=== PATIENT | male | born 1995 ===

== ENCOUNTER 2018-08-28 10:42 | Emergency (ER) | payer BC ==
[2018-08-28] MEDS ORDERED: methylPREDNISolone 125 MG* 2 ML VIAL ONE (10:45)
[2018-08-28] MEDS ORDERED: Famotidine IV* 10 MG/ML 2 ML (20 mg) ONE (10:45)
--- NOTE | 2018-08-28 10:54 | ED ---
Allergic Reaction/Systemic - HPI Summary HPI Summary: This patient is a 23 year old M brought in by ambulance to [facility] with a chief complaint of SOB and throat tightening since 10:30. 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 Patient gave himself 1 dose of epinephrine [employer] and notes that his symptoms have improved and he is no longer having SOB or throat tightening. The patient rates the pain 0/10 in severity. Symptoms aggravated by nothing. Symptoms alleviated by epi. Patient reports diffuse erythema, tremors, and dry mouth. - History of Current Complaint Time Seen by Provider: 08/28/18 10:42 Hx Obtained From: Patient Onset/Duration: Sudden Onset, Started minutes ago, Resolved Timing: Lasting Minutes Severity Initially: Moderate Severity Currently: Moderate Aggravating Factor(s): Nothing Alleviating Factor(s): Epinephrine Associated Signs And Symptoms: Positive: Difficulty Breathing, Rash - erythema of upper body. Negative: Throat Tightening - Allergies/Home Medications Allergies/Adverse Reactions: Allergies Allergy/AdvReac Type Severity Reaction Status Date / Time Penicillins Allergy Unknown Verified 08/28/18 11:16 Reaction Details Tree Nuts Allergy Anaphylatic Verified 08/28/18 11:16 Shock PMH/Surg Hx/FS Hx/Imm Hx Endocrine/Hematology History: Denies: Hx Diabetes Cardiovascular History: Denies: Hx Hypertension Opthamlomology History: Denies: Hx Legally Blind EENT History: Denies: Hx Deafness - Surgical History Surgery Procedure, Year, and Place: right wrist surgery - Family History Known Family History: Positive: Other - alzheimers (mother's side) - Social History Occupation: Student Alcohol Use: None Substance Use Type: Reports: None Hx Tobacco Use: No Review of Systems Positive: Fever ENT: Negative - negative throat tightening Negative: Shortness Of Breath Skin: Other - erythema of uppe rbody Neurological: Other - tremulous All Other Systems Reviewed And Are Negative: Yes Physical Exam - Summary Physical Exam Summary: VITAL SIGNS: Reviewed. GENERAL: Patient is a well-developed and nourished MALE who is lying comfortable in the stretcher. Patient is not in any acute respiratory distress. HEAD AND FACE: No signs of trauma. No ecchymosis, hematomas or skull depressions. No sinus tenderness. No trismus EYES: PERRLA, EOMI x 2, No injected conjunctiva, no nystagmus. EARS: Hearing grossly intact. Ear canals and tympanic membranes are within normal limits. MOUTH: Oropharynx within normal limits. Tongue and lips are not swollen NECK: Supple, trachea is midline, no adenopathy, no JVD, no carotid bruit, no c- spine tenderness, neck with full ROM. CHEST: Symmetric, no tenderness at palpation LUNGS: Clear to auscultation bilaterally. No wheezing or crackles. CVS: Tachycardia at 131 bpm. Regular rhythm, S1 and S2 present, no murmurs or gallops appreciated. ABDOMEN: Soft, non-tender. No signs of distention. No rebound no guarding, and no masses palpated. Bowel sounds are normal. EXTREMITIES: FROM in all major joints, no edema, no cyanosis or clubbing. NEURO: Alert and oriented x 3. No acute neurological deficits. Speech is normal and follows commands. Tremulous secondary to epinephrine administration SKIN: Dry and warm, diffuse erythema in upper body Triage Information Reviewed: Yes Vital Signs Reviewed: Yes Diagnostics - Laboratory Result Diagrams: 08/28/18 10:41 08/28/18 10:41 Lab Statement: Any lab studies that have been ordered have been reviewed, and results considered in the medical decision making process. - EKG 14:16 Cardiac Rate: NL - at 67 bpm EKG Rhythm: Sinus Rhythm ST Segment: Normal Summary of EKG Findings: Sinus rhythm at [address] elevations and nml early repolarization Re-Evaluation - Re-Evaluation 1st re-eval Re-Evaluation Time: 11:30 Change: Worse Comment: Patient is now wheezing slightly and experiencing swelling in the middle and ring fingers of his right hand 2nd re-eval Re-Evaluation Time: 11:55 Change: Improved Comment: Patient reports he is feeling better. He refused Ativan. Allergic Reaction Course/Dx - Course Assessment/Plan: Patient presents with allergic reaction via ambulance after he consumed nuts with pancakes. Initially, in the ED, the patient was placed in a gambling monitor, the patient already was given Benadryl and an EpiPen [employer]. In the ED the patient was given Solu-Medrol and Pepcid. Patient was given IV fluids and most of the symptoms have resolved. The patient was observed for approximate 4 hours and the ED and his symptoms never returned. The patient is alert and oriented 3 and has no other complaints. At this point the patient is hemodynamically stable alert oriented 3 therefore the patient will be discharged home with follow-up with PCP. Patient will be given a prescription for an EpiPen, Benadryl, Pepcid and prednisone. The patient was given instructions to return to the emergency department if any of the symptoms return or worsen. The patient understands and agrees. - Diagnoses Differential Diagnosis/HQI/PQRI: Positive: Anaphylaxis, Angioedema, Bronchospasm , Local Allergic Reaction, Urticaria Provider Diagnoses: Allergic reaction Discharge - Sign-Out/Discharge Documenting (check all that apply): Patient Departure - discharge home Patient Received Moderate/Deep Sedation with Procedure: No - Discharge Plan Condition: Stable Disposition: HOME Prescriptions: diPHENhydraMINE PO* [Benadryl PO 25 MG TAB*] 25 mg PO TID PRN #30 tab PRN Reason: Allergy Symptoms EPINEPHrine [Epipen 2-Azar] 0.3 mg IM ONCE #1 azar Famotidine TAB* [Pepcid 20 MG TAB*] 20 mg PO DAILY #10 tab predniSONE TAB* [Deltasone 20 MG TAB*] 20 mg PO DAILY #8 tab Patient Education Materials: Food Allergy (ED), Anaphylaxis (ED) Referrals: [facility] [Outside] Additional Instructions: Follow up with primary care physician in 2-3 days. Return to the emergency department with any new or worsening symptoms. - Billing Disposition and Condition Condition: STABLE Disposition: Home - Attestation Statements Document Initiated by Lauren: Yes Documenting Scribe: Mary Guillen Provider For Whom Lauren is Documenting (Include Credential): Omid Guallpa MD Scribe Attestation: Mary Waller scribed for Omid Guallpa MD on 08/29/18 at 1915. Scribe Documentation Reviewed: Yes Provider Attestation: The documentation as recorded by the Mary dykes accurately reflects the service I personally performed and the decisions made by Omid sousa MD Status of Scribe Document: Viewed
[2018-08-28] MEDS ORDERED: methylPREDNISolone 125 MG* 2 ML VIAL IV ONE (11:00)
[2018-08-28] MEDS ORDERED: Famotidine IV* 10 MG/ML 2 ML (20 mg) IV SLOW PU ONE (11:00)
[2018-08-28] MEDS ORDERED: NS 0.9% 1000 ML** 1,000 ML IV ONE (11:15)
[2018-08-28] MEDS ORDERED: LORazepam INJ* 2 MG/ML 1 ML VIAL IV PUSH ONE (11:32)
[2018-08-28] MEDS ORDERED: Albuterol/Ipratropium NEB.SOL* Albuterol 2.5 MG/Ipratropium 0.5 MG 3 ML INH ONE (11:32)
[2018-08-28 11:39] LABS: ABS Basophils 0 10^3/ul (0-0.2); ABS Eosinophils 0 10^3/ul (0-0.6); ABS Lymphocytes 1.2 10^3/ul (1.0-4.8); ABS Monocytes 0.1 10^3/ul (0-0.8); ABS Neutrophils 6.4 10^3/ul (1.5-7.7); ABS Nucleated RBC 0 10^3/ul; Eosinophil % 0.6 %; Hematocrit 47 % (42-52); Lymphocyte % 15.7 %; Mean Corpuscular HGB Conc 34 g/dl (31-36); Mean Corpuscular Hemoglobin 29 pg (27-31); Mean Corpuscular Volume 87 fL (80-94); Mean Platelet Volume 8.1 fL (7.4-10.4); Nucleated Red Blood Cells % 0; Platelet Count 206 10^3/ul (150-450); Red Blood Count 5.44 10^6/ul (4.00-5.40); Red Cell Distribution Width 13 % (10.5-15); White Blood Count 7.7 10^3/ul (3.5-10.8)
[2018-08-28 11:56] LABS: ALT 12 U/L (7-52); AST 20 U/L (13-39); Albumin 3.7 g/dL (3.2-5.2); Albumin/Globulin Ratio 1.8 (1-3); Alkaline Phosphatase 38 U/L (34-104); Anion Gap 7 mmol/L (2-11); Blood Urea Nitrogen 11 mg/dL (6-24); C Reactive Protein < 1.00 mg/L (<8.01); CO2 Carbon Dioxide 23 mmol/L (22-32); Calcium 8.5 mg/dL (8.6-10.3); Chloride 107 mmol/L (101-111); EGFR African American 114.1 (>60); EGFR Non-African American 94.3 (>60); Globulin 2.1 g/dL (2-4); Glucose 139 mg/dL (70-100); Potassium 3.6 mmol/L (3.5-5.0); Sodium 137 mmol/L (135-145); Total Protein 5.8 g/dL (6.4-8.9)
[2018-08-28 13:30] LABS: Urine Appearance Clear; Urine Bilirubin Negative (Negative); Urine Blood Negative (Negative); Urine Color Yellow; Urine Glucose Negative (Negative); Urine Ketones Negative (Negative); Urine Nitrite Negative (Negative); Urine Protein Negative (Negative); Urine Specific Gravity 1.009 (1.010-1.030); Urine Urobilinogen Negative (Negative)
[2018-08-28 14:38] VITALS: BP 119/60
== END 2018-08-28 14:49 | disposition home or self-care (01) ==
LOC: ED 10:42
DX: T78.40XA Allergy, unspecified, initial encounter (principal); X58.XXXA Exposure to other specified factors, initial encounter; Z88.0 Allergy status to penicillin
CPT/HCPCS: 36415; 80053; 81003; 85025; 86140; 93005; 96361; 96374; 96375; 99284; A9270-GY; J2060; J2930